=== PATIENT | female | born 1990 | race Caucasian/White ===

== ENCOUNTER 2016-09-23 13:27 | Emergency (ER) | payer OTHER ==
[2016-09-23] MEDS ORDERED: SODIUM CHLORIDE 0.9% 1,000 ML ONE (17:21)
== END 2016-09-23 18:52 | disposition home or self-care (01) ==
LOC: ER 13:27
DX: O20.0 Threatened abortion (principal); Z79.899 Other long term (current) drug therapy
CPT/HCPCS: 36415; 76817; 80048; 81001; 84702; 85025; 86901; 87491; 87591; 87800